=== PATIENT | male | born 1930 | race Caucasian/White ===

== ENCOUNTER 2018-08-01 16:42 | Emergency (ER) | payer MEDICARE, BC ==
--- NOTE | 2018-08-01 17:03 | ED Physician Documentation ---
PD HPI ABD PAIN - Stated complaint Stated Complaint: MALE - Chief complaint Chief Complaint: UTI - History obtained from History obtained from: Patient, Family () - History of Present Illness Timing - onset: Yesterday (This is an 88-year-old gentleman with history of endovascular AAA repair, A. fib on warfarin. He is visiting from [facility]. Starting yesterday he had gross hematuria without clots and he has very mild right flank pain for the last week. He declines any pain medication. There is no history of renal colic.) Review of Systems Ten Systems: 10 systems reviewed and negative Constitutional: denies: Fever, Chills Cardiac: denies: Chest pain / pressure, Palpitations Respiratory: denies: Dyspnea, Cough GI: denies: Abdominal Pain, Nausea, Vomiting, Constipation, Diarrhea PD PAST MEDICAL HISTORY - Present Medications Home Medications: Ambulatory Orders Medication Instructions Recorded Confirmed Escitalopram [Lexapro] 20 mg PO DAILY 08/01/18 08/01/18 Glucosamine HCl/Chondroitin [place] 1 each PO 08/01/18 [Endur-Flex Sr Tablet] Pravastatin [Pravachol] 20 mg 08/01/18 RX: Atenolol 25 mg PO 08/01/18 RX: Fosinopril Sodium 40 mg PO 08/01/18 RX: Warfarin Sodium 08/01/18 RX: Warfarin Sodium 4 mg PO 08/01/18 Tamsulosin [Flomax] 0.4 mg PO ONCE 08/01/18 08/01/18 Whole Blood Pro Time 1 unit TD DAILY #1 08/01/18 amLODIPine [Norvasc] 5 mg PO ONCE 08/01/18 08/01/18 - Allergies Allergies/Adverse Reactions: Allergies Allergy/AdvReac Type Severity Reaction Status Date / Time No Known Drug Allergies Allergy Verified 08/01/18 16:48 PD ED PE NORMAL - Vitals Vital signs reviewed: Yes - General General: Alert and oriented X 3, No acute distress - Neck Neck: Supple, no meningeal sign, No bony TTP - Cardiac Cardiac: Other (Irregularly irregular with 4 out of 6 systolic murmur) - Respiratory Respiratory: No respiratory distress, Clear bilaterally - Abdomen Abdomen: Normal bowel sounds, Soft, Non tender - Back Back: No CVA TTP, No spinal TTP - Derm Derm: Normal color, Warm and dry - Extremities Extremities: No edema, No calf tenderness / cord - Neuro Neuro: Alert and oriented X 3, Normal speech Results - Vitals Vitals: Vital Signs - 24 hr 08/01/18 08/01/18 16:46 18:38 Temperature 36.2 C L 36.6 C Heart Rate 65 63 Respiratory 20 20 Rate Blood Pressure 128/97 H 159/87 H O2 Saturation 97 96 Oxygen O2 Source Room air - Labs Labs: Laboratory Tests 08/01/18 08/01/18 08/01/18 16:54 17:05 17:05 WBC 5.8 RBC 4.23 L Hgb 13.7 L Hct 41.5 L MCV 98.1 H MCH 32.3 H MCHC 32.9 RDW 13.9 Plt Count 208 MPV 8.0 Neut # (Auto) 4.1 Lymph # (Auto) 0.7 L [place] # (Auto) 0.6 Eos # (Auto) 0.2 Baso # (Auto) 0.1 Absolute Nucleated RBC 0.00 Nucleated RBC % 0.0 PT INR Sodium 142 Potassium 3.9 Chloride 108 Carbon Dioxide 27 Anion Gap 7.0 BUN 29 H Creatinine 1.2 Estimated GFR (MDRD) 57 L Glucose 100 Calcium 8.8 Total Bilirubin 0.7 AST 20 ALT 18 Alkaline Phosphatase 55 Total Protein 7.0 Albumin 4.0 Globulin 3.0 Albumin/Globulin Ratio 1.3 Lipase 37 Urine Color RED/BLOODY Urine Clarity BLOODY Urine pH 5.5 Ur Specific [place] >=1.030 H Urine Protein 100 H Urine Glucose (UA) NEGATIVE Urine Ketones NEGATIVE Urine Occult Blood LARGE H Urine Nitrite NEGATIVE Urine Bilirubin NEGATIVE Urine Urobilinogen 0.2 (NORMAL) Ur Leukocyte Esterase NEGATIVE Urine RBC TNTC H Urine WBC 0-3 Ur Squamous Epith Cells NONE SEEN Urine Bacteria Rare Ur Microscopic Review INDICATED Urine Culture Comments NOT INDICATED 08/01/18 17:05 WBC RBC Hgb Hct MCV MCH MCHC RDW Plt Count MPV Neut # (Auto) Lymph # (Auto) [place] # (Auto) Eos # (Auto) Baso # (Auto) Absolute Nucleated RBC Nucleated RBC % PT 39.3 H INR 3.5 H Sodium Potassium Chloride Carbon Dioxide Anion Gap BUN Creatinine Estimated GFR (MDRD) Glucose Calcium Total Bilirubin AST ALT Alkaline Phosphatase Total Protein Albumin Globulin Albumin/Globulin Ratio Lipase Urine Color Urine Clarity Urine pH Ur Specific [place] Urine Protein Urine Glucose (UA) Urine Ketones Urine Occult Blood Urine Nitrite Urine Bilirubin Urine Urobilinogen Ur Leukocyte Esterase Urine RBC Urine WBC Ur Squamous Epith Cells Urine Bacteria Ur Microscopic Review Urine Culture Comments - Rads (name of study) CT IVP Radiology: EMP read contemporaneously (Polypoid mass near the right UVJ in the bladder wall concerning for neoplasm) PD MEDICAL DECISION MAKING - ED course ED course: This is an 88-year-old gentleman on warfarin presents with acute gross hematuria with very mild right flank pain. Initial differential diagnosis included vascular issue, renal colic, or bladder mass. His INR is 3.5. Case was discussed initially with radiology to discuss the differential and see how the CT should be protocolized and they recommended CT IVP which is done and concerning for bladder mass. Patient and were counseled on this diagnosis and the need for follow-up on return home to see a urologist. They were given a copy of the labs, CT scan read, and CT images on CD to aid in follow-up. He will decrease his warfarin as discussed in the discharge instructions. Departure - Departure Disposition: 01 Home, Self Care Clinical Impression: Heart murmur, Bladder mass, Hematuria, Supratherapeutic INR Condition: Good Record reviewed to determine appropriate education?: Yes Prescriptions: Whole Blood Pro Time 1 unit TD DAILY #1 Comments: No warfarin tonight. Take a half dose tomorrow night. Have your ProTime checked here at the hospital on Friday to decide when to restart. Would like you running in the low twos. Follow-up with your doctor on return home for referral to urology. Discharge Date/Time: 08/01/18 19:35
[2018-08-01 17:12] LABS: BILIRUBIN,URINE NEGATIVE (NEGATIVE); GLUCOSE, URINE (UA) NEGATIVE (NEGATIVE); KETONES,URINE (UA) NEGATIVE (NEGATIVE); LEUKOCYTE ESTERASE, URINE NEGATIVE (NEGATIVE); NITRITE,URINE NEGATIVE (NEGATIVE); OCCULT BLOOD,URINE LARGE (NEGATIVE); PH,URINE 5.5 PH (5.0-7.5); PROTEIN,URINE 100 mg/dL (NEGATIVE); UROBILINOGEN,URINE 0.2 (NORMAL) E.U./dL (NORMAL)
[2018-08-01 17:15] LABS: CLARITY,URINE BLOODY (CLEAR)
[2018-08-01 17:16] LABS: BACTERIA,URINE Rare /HPF (None Seen); RBC,URINE TNTC /HPF (0-5); SQUAMOUS EPITHELIAL CELL,UR NONE SEEN (<= Few)
[2018-08-01 17:17] LABS: BASOPHILS # (AUTO) 0.1 10^3/uL (0.0-0.1); EOSINOPHILS # (AUTO) 0.2 10^3/uL (0.0-0.7); EOSINOPHILS % (AUTO) 4.3 %; HGB - HEMOGLOBIN 13.7 g/dL (14.0-18.0); LYMPHOCYTES # (AUTO) 0.7 10^3/uL (1.5-3.5); LYMPHOCYTES % (AUTO) 12.9 %; MEAN CORPUSCULAR HEMOGLOBIN 32.3 pg (27.0-31.0); MEAN CORPUSCULAR HGB CONC 32.9 g/dL (32.0-36.0); MEAN CORPUSCULAR VOLUME 98.1 fL (80.0-94.0); MONOCYTES # (AUTO) 0.6 10^3/uL (0.0-1.0); MONOCYTES % (AUTO) 10.7 %; NEUTROPHILS # (AUTO) 4.1 10^3/uL (1.5-6.6); NEUTROPHILS % (AUTO) 71.1 %; PLT - PLATELET COUNT 208 10^3/uL (130-450); RED BLOOD COUNT 4.23 10^6/uL (4.70-6.10); RED CELL DISTRIBUTION WIDTH 13.9 % (12.0-15.0); WHITE BLOOD COUNT 5.8 x10^3/uL (4.8-10.8)
[2018-08-01 17:30] LABS: INR 3.5 (0.8-1.2); PT - PROTHROMBIN TIME 39.3 secs (9.9-12.6)
[2018-08-01 17:33] LABS: ALBUMIN/GLOBULIN RATIO 1.3 (1.0-2.2); BILIRUBIN,TOTAL 0.7 mg/dL (0.2-1.0); CALCIUM 8.8 mg/dL (8.5-10.3); CREATININE 1.2 mg/dL (0.6-1.2)
[2018-08-01] MEDS ORDERED: IOVERSOL 320 100 ML VIAL IVP ONE ×2 (17:44→18:07)
--- NOTE | 2018-08-01 19:06 | CT Report ---
Reason: R flank pain, hematuria Procedure Date: 08/01/2018 Accession Number: [id number] / [id number] Procedure: CT - IVP CPT Code: FULL RESULT: EXAM: CT ABDOMEN AND PELVIS WITHOUT AND WITH CONTRAST (CT IVP) EXAM DATE: 08/01/2018 06:04 PM. CLINICAL HISTORY: Right flank pain and hematuria COMPARISONS: None. TECHNIQUE: Routine helical imaging was performed through the kidneys, ureters and bladder in the precontrast, postcontrast and delayed phase. IV Contrast: 100 cc Optiray 320 IV. 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 No pleural effusion.. In accordance with CT protocol optimization, one or more of the following dose reduction techniques were utilized for this exam: automated exposure control, adjustment of mA and/or KV based on patient size, or use of iterative reconstructive technique. FINDINGS: Lung Bases: Unremarkable. Right Kidney/Ureter: No stones, hydronephrosis, or masses. Left Kidney/Ureter: There is a round parapelvic cyst measuring 15 mm and the left kidney. No renal or ureteral stones. No solid renal mass or hydronephrosis. No filling defect in the left ureter. Other Solid Organs: There is a small 15 mm right adrenal nodule with noncontrast density of 3 HU consistent with an adenoma. The left adrenal gland, liver, gallbladder, spleen and pancreas appear otherwise unremarkable.The bile ducts are unremarkable. Peritoneal Cavity/Bowel: Normal. No free fluid, free air or adenopathy. No masses. Bowel loops are unremarkable. Pelvic Organs: There is a polypoid lesion along the posterior right urinary bladder wall protruding into the lumen near the ureterovesicular junction measuring 16 x 11 x 11 mm. Urinary bladder otherwise unremarkable. No pelvic lymphadenopathy. Vasculature: There is extensive atherosclerotic vascular calcification. There are findings of endovascular repair of abdominal aortic aneurysm with bifurcated endograft. The lumen of the aorta is not well enhanced secondary to CT IVP technique. Bones: There is a moderate T12 compression fracture which is probably old given sclerosis. Other: None. IMPRESSION: 1. Polypoid 16 x 11 x 11 mm bladder wall nodule near right ureterovesicular junction. Differential including inflammatory and malignant bladder neoplasm. Possible source of hematuria, although not likely source of pain. 2. No renal or ureteral stones or masses. No hydronephrosis. 3. 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 4. Atherosclerotic vascular disease. 5. Benign right small adrenal adenoma. RADIA
[2018-08-01 19:25] VITALS: BP 159/87
== END 2018-08-01 19:35 | disposition home or self-care (01) ==
LOC: ED 16:42
DX: N32.9 Bladder disorder, unspecified (principal); R31.9 Hematuria, unspecified; R79.1 Abnormal coagulation profile; R01.1 Cardiac murmur, unspecified; Z79.01 Long term (current) use of anticoagulants
CPT/HCPCS: 36415; 74178; 80053; 81001; 83690; 85025; 85610; 99283; 99284; Q9967; 81003; 87086

== ENCOUNTER 2018-08-03 09:17 | Outpatient (CLI) | payer MEDICARE, BC | END 2018-08-03 09:18 | disposition home or self-care (01) | LOC: LAB 09:17 | PROVIDERS: ATTEND Emergency Medicine | DX: I48.91 Unspecified atrial fibrillation (principal) | CPT/HCPCS: 85610 ==

== ENCOUNTER 2020-08-01 19:25 | Outpatient (CLI) | payer MEDICARE, BC | END 2020-08-01 19:26 | disposition critical access hospital (66) | LOC: EMS 19:25 | PROVIDERS: ATTEND Surgery | DX: R10.30 Lower abdominal pain, unspecified (principal); R11.2 Nausea with vomiting, unspecified | CPT/HCPCS: A0425; A0427 ==

== ENCOUNTER 2020-08-01 19:31 | Emergency (ER) | payer MEDICARE, BC ==
[2020-08-01] MEDS ORDERED: SODIUM CHLORIDE 0.9% 1,000 ML IV STA (19:54)
[2020-08-01 20:10] LABS: BASOPHILS % (AUTO) 0.2 %; EOSINOPHILS % (AUTO) 0.2 %; HGB - HEMOGLOBIN 12.5 g/dL (14.0-18.0); LYMPHOCYTES # (AUTO) 0.3 10^3/uL (1.5-3.5); MEAN CORPUSCULAR HEMOGLOBIN 32.8 pg (27.0-31.0); MEAN CORPUSCULAR HGB CONC 32.8 g/dL (32.0-36.0); MEAN PLATELET VOLUME 9.5 fL (7.4-11.4); MONOCYTES # (AUTO) 1.1 10^3/uL (0.0-1.0); MONOCYTES % (AUTO) 8.3 %; NEUTROPHILS # (AUTO) 11.3 10^3/uL (1.5-6.6); PLT - PLATELET COUNT 188 10^3/uL (130-450); RED BLOOD COUNT 3.81 10^6/uL (4.70-6.10); RED CELL DISTRIBUTION WIDTH 12.6 % (12.0-15.0); WHITE BLOOD COUNT 12.7 x10^3/uL (4.8-10.8)
[2020-08-01 20:23] LABS: ALBUMIN 3.5 g/dL (3.2-5.5); ALBUMIN/GLOBULIN RATIO 1.3 (1.0-2.2); BILIRUBIN,TOTAL 1.1 mg/dL (0.2-1.0); CALCIUM 8.5 mg/dL (8.5-10.3); CREATININE 1.3 mg/dL (0.6-1.2); TOTAL PROTEIN 6.1 g/dL (6.7-8.2)
[2020-08-01 20:39] LABS: BILIRUBIN,URINE NEGATIVE (NEGATIVE); GLUCOSE, URINE (UA) NEGATIVE (NEGATIVE); KETONES,URINE (UA) 15 mg/dL (NEGATIVE); LEUKOCYTE ESTERASE, URINE NEGATIVE (NEGATIVE); NITRITE,URINE NEGATIVE (NEGATIVE); OCCULT BLOOD,URINE TRACE-INTA (NEGATIVE); PH,URINE 5.5 PH (5.0-7.5); PROTEIN,URINE 100 mg/dL (NEGATIVE); UROBILINOGEN,URINE 0.2 (NORMAL) E.U./dL (NORMAL)
[2020-08-01 20:42] LABS: CLARITY,URINE CLEAR (CLEAR)
[2020-08-01 20:51] LABS: AMORPHOUS SEDIMENT,UR Rare /LPF; BACTERIA,URINE None Seen /HPF (None Seen); RBC,URINE 0-5 /HPF (0-5); SQUAMOUS EPITHELIAL CELL,UR RARE Squamous (<= Few)
--- NOTE | 2020-08-01 21:38 | ED Physician Documentation ---
History of Present Illness - Stated complaint Stated Complaint: N/V - Chief complaint Chief Complaint: Abd Pain - History obtained from History obtained from: Patient - Additonal information Additional information: PT is brought to the ED by EMS after experiencing NV today. Pt states he began to feel nauseated after eating this afternoon, and that the feeling built until he finally began vomiting. Pt states that after he vomited a number of times, his became concerned, and called EMS. Pt denies diarrhea. No abd pain. No CP or SOB. He states he felt somewhat weak and chilled after vomiting. PT received Zofran en-route, and states he is feeling quite a bit better after this. No other complaints at this time. Review of Systems Ten Systems: 10 systems reviewed and negative Constitutional: reports: Chills. denies: Fever Eyes: reports: Reviewed and negative Ears: reports: Reviewed and negative Nose: reports: Reviewed and negative Throat: reports: Reviewed and negative Cardiac: reports: Reviewed and negative Respiratory: reports: Reviewed and negative GI: reports: Nausea, Vomiting : reports: Reviewed and negative Skin: reports: Reviewed and negative Musculoskeletal: reports: Reviewed and negative Neurologic: reports: Reviewed and negative Psychiatric: reports: Reviewed and negative Endocrine: reports: Reviewed and negative Immunocompromised: reports: Reviewed and negative PD PAST MEDICAL HISTORY - Past Medical History Cardiovascular: Hypertension, Atrial fibrillation Respiratory: Sleep apnea, CPAP use - Past Surgical History Past Surgical History: Yes General: Colonoscopy Cardiovascular: AAA - Present Medications Home Medications: Ambulatory Orders Medication Instructions Recorded Confirmed Escitalopram [Lexapro] 20 mg PO DAILY 08/01/18 08/01/20 Fosinopril Sodium 40 mg PO DAILY 08/01/18 08/01/20 Glucosamine HCl/Chondroitin [place] 2 each PO DAILY 08/01/18 08/01/20 [Endur-Flex Sr Tablet] Pravastatin [Pravachol] 20 mg PO DAILY 08/01/18 08/01/20 Tamsulosin [Flomax] 0.4 mg PO ONCE 08/01/18 08/01/20 Warfarin Sodium 4 mg PO DAILY 08/01/18 08/01/20 Whole Blood Pro Time 1 unit TD DAILY #1 08/01/18 amLODIPine [Norvasc] 5 mg PO ONCE 08/01/18 08/01/20 Ondansetron Odt [Zofran] 4 mg TL Q6H PRN #10 tablet 08/01/20 - Allergies Allergies/Adverse Reactions: Allergies Allergy/AdvReac Type Severity Reaction Status Date / Time No Known Drug Allergies Allergy Verified 08/01/18 16:48 - Social History Does the pt smoke?: No Smoking Status: Never smoker Does the pt drink ETOH?: No PD ED PE NORMAL - Vitals Vital signs reviewed: Yes - General General: Alert and oriented X 3, No acute distress - HEENT HEENT: Atraumatic, PERRL, EOMI, Moist mucous membranes - Neck Neck: Supple, no meningeal sign - Cardiac Cardiac: RRR, Strong equal pulses, Other (2/6 systolic murmur) - Respiratory Respiratory: No respiratory distress, Clear bilaterally - Abdomen Abdomen: Soft, Non tender, Non distended - Derm Derm: Warm and dry - Extremities Extremities: No deformity - Neuro Neuro: Alert and oriented X 3 - Psych Psych: Normal mood, Normal affect Results - Vitals Vitals: Vital Signs - 24 hr 08/01/20 08/01/20 19:37 21:51 Temperature 36.8 C Heart Rate 84 75 Respiratory 14 18 Rate Blood Pressure 155/80 H 127/71 O2 Saturation 95 93 Oxygen O2 Source Room air - Labs Labs: Laboratory Tests 08/01/20 08/01/20 08/01/20 20:05 20:05 20:27 WBC 12.7 H RBC 3.81 L Hgb 12.5 L Hct 38.1 L MCV 100.0 H MCH 32.8 H MCHC 32.8 RDW 12.6 Plt Count 188 MPV 9.5 Neut # (Auto) 11.3 H Lymph # (Auto) 0.3 L [place] # (Auto) 1.1 H Eos # (Auto) 0.0 Baso # (Auto) 0.0 Absolute Nucleated RBC 0.00 Nucleated RBC % 0.0 Sodium 139 Potassium 3.8 Chloride 104 Carbon Dioxide 22 Anion Gap 13.0 BUN 30 H Creatinine 1.3 H Estimated GFR (MDRD) 52 L Glucose 121 H Calcium 8.5 Total Bilirubin 1.1 H AST 13 ALT 15 Alkaline Phosphatase 49 Total Protein 6.1 L Albumin 3.5 Globulin 2.6 Albumin/Globulin Ratio 1.3 Lipase 25 Urine Color YELLOW Urine Clarity CLEAR Urine pH 5.5 Ur Specific [place] >=1.030 H Urine Protein 100 H Urine Glucose (UA) NEGATIVE Urine Ketones 15 H Urine Occult Blood [place]ACE-INTA Urine Nitrite NEGATIVE Urine Bilirubin NEGATIVE Urine Urobilinogen 0.2 (NORMAL) Ur Leukocyte Esterase NEGATIVE Urine RBC 0-5 Urine WBC 0-3 Ur Squamous Epith Cells RARE Squamous Amorphous Sediment Rare Urine Bacteria None Seen Ur Microscopic Review INDICATED Urine Culture Comments NOT INDICATED PD MEDICAL DECISION MAKING - ED course Complexity details: reviewed results, re-evaluated patient, considered differential, d/w patient ED course: Pt was treated symptomatically with IV fluids. His nausea had greatly improved, and pt was actually quite well-appearing. He was evaluated with laboratory studies and UA, which showed some volume contraction, with elevated specific gravity on UA and mildly elevated BUN/CR on CMP. Pt was given a liter of NS in the ED, which should resolve this issue. We have discussed that this is most likely a viral illness, and imaging will not be helpful at this point, given that the pt does not have any abdominal tenderness or pain to speak of. We have discussed clear liquid diet, ODT Zofran at home, and the usual indications for return. Departure - Departure Disposition: 01 Home, Self Care Clinical Impression: Vomiting Qualifiers: Vomiting type: bilious vomiting Nausea presence: with nausea Qualified Code(s): R11.14 - Bilious vomiting Condition: Stable Instructions: ED Nausea Vomiting Prescriptions: Ondansetron Odt [Zofran] 4 mg TL Q6H PRN #10 tablet PRN Reason: Nausea / Vomiting Comments: Your labs, urinalysis, and EKG all look good. As we discussed, your symptoms are most likely secondary to a viral infection, which is the most common cause of illnesses like this in our country. You have been tested for Covid and this is pending at this time, though it is most likely that you have one of the common "stomach flu" viruses. You should quarantine until you are known to have a negative Covid test. The test we have done tonight should be back within 24 to 48 hours. If it is positive we will call you at home. If negative, you will not receive a call. However, if you have not heard back within 48 hours, you should call the hospital to arrange to find out your test results. Please take the oral dissolving Zofran that has been prescribed to help with the nausea you have been having. You should stick with only clear liquids tomorrow and should drink nothing else for the rest of the night tonight. If by the end of the day tomorrow you are tolerating clear liquids in small amounts at a time, then you may begin to eat simple foods, such as Ramen noodles or saltine crackers. If you tolerate these okay, you may progress your diet from there. Discharge Date/Time: 08/01/20 21:58
[2020-08-01 21:51] VITALS: BP 127/71
== END 2020-08-01 21:58 | disposition home or self-care (01) ==
LOC: EDUNIT# → ED 19:31
DX: R11.14 Bilious vomiting (principal); I10 Essential (primary) hypertension; I48.91 Unspecified atrial fibrillation; Z79.01 Long term (current) use of anticoagulants; Z20.828 Contact with and (suspected) exposure to other viral communicable diseases
CPT/HCPCS: 36415; 80053; 81001; 83690; 85025; 93005; 99283; 99284; U0004; 81003; 87086

== ENCOUNTER 2021-01-05 17:59 | Emergency (ER) | payer MEDICARE, BC ==
[2021-01-05] MEDS ORDERED: BUFFERED LIDOCAINE 10 ML SYRINGE SUBQ STA (18:23)
[2021-01-05] MEDS ORDERED: LIDOCAINE-EPINEPH-TETRACAINE 3 ML SYRINGE TOP STA (18:23)
[2021-01-05] MEDS ORDERED: TETANUS/DIPHTHERIA/PERTUSSIS 0.5 ML SYRINGE IM ONE (18:24)
--- NOTE | 2021-01-05 18:25 | ED Physician Documentation ---
PD HPI HEAD INJURY - Stated complaint Stated Complaint: GLF - Chief complaint Chief Complaint: Trauma Hd/Nk - History obtained from History obtained from: Patient - Additional information Additional information: 89-year-old gentleman on warfarin had a ground-level fall backwards hitting the back of his head on a rock at about 4 PM today. There was no loss of consciousness. He denies headache. He does have a laceration on the vertex of the scalp. No other noted injuries. Last had his INR checked about a week ago and was within range. Review of Systems Ten Systems: 10 systems reviewed and negative Constitutional: denies: Fever, Chills Eyes: reports: Reviewed and negative Ears: reports: Reviewed and negative Nose: reports: Reviewed and negative PD PAST MEDICAL HISTORY - Past Medical History Cardiovascular: Hypertension, Atrial fibrillation Respiratory: Sleep apnea, CPAP use - Past Surgical History Past Surgical History: Yes General: Colonoscopy Cardiovascular: AAA - Present Medications Home Medications: Ambulatory Orders Medication Instructions Recorded Confirmed Escitalopram [Lexapro] 20 mg PO DAILY 08/01/18 08/01/20 Fosinopril Sodium 40 mg PO DAILY 08/01/18 08/01/20 Glucosamine HCl/Chondroitin [place] 2 each PO DAILY 08/01/18 08/01/20 [Endur-Flex Sr Tablet] Pravastatin [Pravachol] 20 mg PO DAILY 08/01/18 08/01/20 Tamsulosin [Flomax] 0.4 mg PO ONCE 08/01/18 08/01/20 Warfarin Sodium 4 mg PO DAILY 08/01/18 08/01/20 Whole Blood Pro Time 1 unit TD DAILY #1 08/01/18 amLODIPine [Norvasc] 5 mg PO ONCE 08/01/18 08/01/20 Ondansetron Odt [Zofran] 4 mg TL Q6H PRN #10 tablet 08/01/20 - Allergies Allergies/Adverse Reactions: Allergies Allergy/AdvReac Type Severity Reaction Status Date / Time No Known Drug Allergies Allergy Verified 08/01/18 16:48 - Social History Does the pt smoke?: No Smoking Status: Never smoker Does the pt drink ETOH?: No PD ED PE NORMAL - Vitals Vital signs reviewed: Yes - General General: Alert and oriented X 3, No acute distress - HEENT HEENT: PERRL, EOMI, Other (Long laceration on the occiput/vertex midline. No deformity.) - Neck Neck: No bony TTP - Neuro Neuro: Alert and oriented X 3, transport driver 2-12 intact, No motor deficit, No sensory deficit, Normal speech Results - Vitals Vitals: Vital Signs - 24 hr 01/05/21 18:16 Temperature 36.6 C Heart Rate 76 Respiratory 16 Rate Blood Pressure 146/50 H O2 Saturation 98 Oxygen O2 Source Room air - Labs Labs: Laboratory Tests 01/05/21 18:35 INR (Fingerstick) 2.1 H - Rads (name of study) CT of the head and C-spine Radiology: EMP read contemporaneously (No traumatic abnormality noted) Procedures - Laceration (location) scalp Length in cm: 4 Wound type: Into subcut fat Anesthesia: LET, Lidocaine 1%, With bicarb Wound preparation: Irrigated copiously NS Skin layer closure: [place] Other: Patient tolerated well, No complications, Neurovascular intact, Tetanus booster given Departure - Departure Disposition: 01 Home, Self Care Clinical Impression: Adequate anticoagulation on anticoagulant therapy Scalp laceration Qualifiers: Encounter type: initial encounter Qualified Code(s): S01.01XA - Laceration without foreign body of scalp, initial encounter Injury of head and neck Qualifiers: Encounter type: initial encounter Qualified Code(s): S09.90XA - Unspecified injury of head, initial encounter Condition: Good Record reviewed to determine appropriate education?: Yes Instructions: ED Head Injury Closed, ED Laceration Scalp Stitch Or Stap Comments: If you develop worsening or new headaches or other new symptoms please return for reevaluation. Otherwise the reggie need to come out in about 10 days, you can follow-up with your primary care physician for this.
--- OUTSIDE RECORDS SUMMARY | 2021-01-05 19:08 | EXTERNAL MEDICAL SUMMARY RPT | Continuity of Care Document ---
:1930 Demographics Phone Unavailable Preferred Language Unknown Marital Status Unknown Evangelical Affiliation Unknown Race Unknown Ethnic Group Unknown Author Organization [facility] Address [address] [place] [address] Phone Allergies Encounters Medications Problems Results
--- NOTE | 2021-01-05 19:10 | CT Report ---
PROCEDURE: HEAD WO INDICATIONS: head injury TECHNIQUE: Noncontrast 4.5 mm thick angled axial sections acquired from the foramen magnum to the vertex. For r adiation dose reduction, the following was used: automated exposure control, adjustment of mA and/or kV according to patient size. COMPARISON: Same day cervical spine CT. FINDINGS: Image quality: Excellent. CSF spaces: Basal cisterns are patent. No extra-axial fluid collections. Ventricles are normal in size and shape. Brain: No midline shift. No intracranial masses or hemorrhage. No area of hypodensity in a large va scular distribution to suggest infarction. 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 Skull and face: Calvarium and visualized facial bones are intact, without suspicious lesions. Sinuses: Visualized sinuses and mastoids are clear. IMPRESSION: No acute intracranial abnormality. Reviewed by: Osbaldo Saldaña MD on 01/05/2021 7:09 PM PDT Approved by: Osbaldo Saldaña MD on 01/05/2021 7:09 PM PDT Station ID: [id number]
--- NOTE | 2021-01-05 19:12 | CT Report ---
PROCEDURE: CERVICAL SPINE WO INDICATIONS: Head injury TECHNIQUE: Noncontrast 3 mm thick sections acquired from the skull base to the T4 level. Sagittal and coronal r eformats were then constructed. For radiation dose reduction, the following was used: automated exp osure control, adjustment of mA and/or kV according to patient size. COMPARISON: None. FINDINGS: Image quality: Excellent. Bones: No fractures or dislocations. Visualized superior ribs are intact. Severe degenerative mortensen e in the cervical spine. Soft tissues: Prevertebral soft tissues are normal in thickness. No paravertebral hematomas. No ap ical pneumothoraces. Severe calcification at the carotid bulbs. IMPRESSION: No acute intracranial abnormality. Reviewed by: Osbaldo Saldaña MD on 01/05/2021 7:11 PM PDT Approved by: Osbaldo Saldaña MD on 01/05/2021 7:11 PM PDT Station ID: [id number]
[2021-01-05 19:30] VITALS: BP 145/102
== END 2021-01-05 19:29 | disposition home or self-care (01) ==
LOC: ED 17:59
DX: S01.01XA Laceration without foreign body of scalp, initial encounter (principal); W18.30XA Fall on same level, unspecified, initial encounter; Y93.H2 Activity, gardening and landscaping; I10 Essential (primary) hypertension; I48.91 Unspecified atrial fibrillation; Z79.01 Long term (current) use of anticoagulants; Z23 Encounter for immunization
CPT/HCPCS: 12002; 36415; 85610; 90471; 99283; 99284